=== PATIENT | female | born 1950 | race African-American/Black ===

== ENCOUNTER 2023-11-06 20:26 | Inpatient (IN) | payer MEDICARE, MEDICAID ==
[~2023-11-06] VITALS: Ht 154.9 cm; Wt 79.9 kg
[2023-11-06] MEDS: SODIUM CHLORIDE 0.9% 1,000 ML IV ONE (05:00)
[~2023-11-06 20:26] MED LIST: FLUT12AE7; HYDR-519
[2023-11-06] MEDS ORDERED: ONDANSETRON HCL 4MG/2ML INJ IV STA (22:58)
[2023-11-06] MEDS ORDERED: FENTANYL CITRATE/PF 50MCG/ML 2ML VIAL IV ONE (23:00)
[2023-11-06 23:57] LABS: POTASSIUM 3.8 mEq/L (3.5-5.1)
[2023-11-07 00:03] LABS: BASOPHILS % 0.8 % (0.0-2.0); CREATININE 1.1 mg/dL (0.6-1.0); EOSINOPHILS % 1.7 % (0.0-5.0); HEMATOCRIT. 41.6 % (36.0-48.0); HEMOGLOBIN. 13.4 g/dL (12.0-16.0); LYMPHOCYTES % 19.3 % (20.0-50.0); MEAN CORPUSCULAR HEMOGLOBIN 27.3 pg (28.0-32.0); MEAN CORPUSCULAR HGB CONC 32.2 g/dL (31.0-37.0); MEAN CORPUSCULAR VOLUME 84.9 fL (81.0-99.0); MEAN PLATELET VOLUME 9.7 fl (7.4-10.4); MONOCYTES % 6.6 % (2.0-8.0); NEUTROPHILS % 71.6 % (40.0-76.0); PLATELET 224 x1000/uL (130-400); RED BLOOD CELL COUNT 4.91 mill/uL (4.2-5.4); RED CELL DISTRIBUTION WIDTH 15.2 % (11.6-14.6); WHITE BLOOD COUNT 16.6 x1000/uL (4.5-11.0)
[2023-11-07] MEDS: ONDANSETRON HCL 4MG/2ML INJ IV NR (00:07)
[2023-11-07] MEDS: FENTANYL CITRATE/PF 50MCG/ML 2ML VIAL IV NR (00:10)
[2023-11-07] MEDS: IOHEXOL-300 100 ML BOTTLE ONE (06:35)
[2023-11-07 12:00] VITALS: BP 143/76; PULSE 60; RESP 18; TEMP 97.4
[2023-11-07] MEDS ORDERED: IPRATROPIUM/ALBUTEROL 0.5-3(2.5)MG/3ML NEB HHN PRN (12:45)
[2023-11-07] MEDS ORDERED: ONDANSETRON HCL 4MG/2ML INJ IV PRN (12:45)
[2023-11-07 13:00] VITALS: BP 143/73; PULSE 60; RESP 18; TEMP 98.1
[2023-11-07] MEDS ORDERED: NALOXONE HCL 0.4MG/ML VIAL IV PRN (13:00)
[2023-11-07] MEDS: ACETAMINOPHEN 325MG TABLET PO PRN (13:17)
[2023-11-07] MEDS: SODIUM CHLORIDE 0.45% 1,000 ML IV SCH (15:58)
[2023-11-07 16:00] VITALS: BP 125/81; PULSE 67; RESP 18; TEMP 97.7
[2023-11-07 16:53] LABS: CREATINE KINASE MB FRACTION 1.4 ng/mL (0.5-3.6); TROPONIN I HIGH SENSITIVITY 6 ng/L (3.0-34)
[2023-11-07 16:54] LABS: CREATINE KINASE 136 IU/L (34-145)
[2023-11-07 20:00] VITALS: BP 129/87; PULSE 68; RESP 18; TEMP 98.6
[2023-11-07] MEDS: HYDROCODONE/ACETAMINOPHEN 5/325MG TABLET PO PRN (20:18)
[2023-11-07 22:01] LABS: CREATINE KINASE MB FRACTION 1.1 ng/mL (0.5-3.6)
[2023-11-08] VITALS: BP 158/90; PULSE 60; RESP 18; TEMP 98.5
[2023-11-08 04:00] VITALS: BP 132/77; PULSE 77; RESP 18; TEMP 98.4
[2023-11-08 08:00] VITALS: BP 150/71; PULSE 67; RESP 18; TEMP 98
[2023-11-08 12:00] VITALS: BP 126/73; PULSE 55; RESP 17; TEMP 97.9
[2023-11-08 12:33] LABS: CHLORIDE 106 mEq/L (98-107); POTASSIUM 3.7 mEq/L (3.5-5.1); SODIUM 137 mEq/L (136-145)
[2023-11-08 12:34] LABS: CALCIUM 9.4 mg/dL (8.7-10.4); CARBON DIOXIDE 25 mEq/L (21-32)
[2023-11-08 12:37] LABS: BASOPHILS % 0.4 % (0.0-2.0); EOSINOPHILS % 3.5 % (0.0-5.0); HEMATOCRIT. 40.3 % (36.0-48.0); LYMPHOCYTES % 35.7 % (20.0-50.0); MEAN CORPUSCULAR HEMOGLOBIN 27.8 pg (28.0-32.0); MEAN CORPUSCULAR HGB CONC 32.4 g/dL (31.0-37.0); MEAN CORPUSCULAR VOLUME 85.8 fL (81.0-99.0); MEAN PLATELET VOLUME 9.8 fl (7.4-10.4); NEUTROPHILS % 52.4 % (40.0-76.0); PLATELET 219 x1000/uL (130-400); RED BLOOD CELL COUNT 4.69 mill/uL (4.2-5.4); RED CELL DISTRIBUTION WIDTH 14.9 % (11.6-14.6); WHITE BLOOD COUNT 7.6 x1000/uL (4.5-11.0)
[2023-11-08 12:39] LABS: CREATININE 0.9 mg/dL (0.6-1.0); GLUCOSE 83 mg/dL (70-105); TRIGLYCERIDE 56 mg/dL (0-150); UREA NITROGEN BLOOD 9 mg/dL (9-23)
[2023-11-08 12:40] LABS: LDL CHOLESTEROL 72 mg/dL (5-100)
[2023-11-08 12:41] LABS: CHOLESTEROL 143 mg/dL (<200); HDL CHOLESTEROL 57 mg/dL (>65)
[2023-11-08 16:00] VITALS: BP 118/72; PULSE 63; RESP 17; TEMP 97.3
[2023-11-08 16:15] VITALS: BP 118/72; PULSE 63; TEMP 97.3; O2SAT 97
== END 2023-11-08 17:30 | disposition home or self-care (01) | DRG 914 ==
LOC: ER 20:26 → MICUSO 11-07 06:27 → 5WST 11-07 08:52 → 7EST 11-07 11:11
PROVIDERS: ADMIT Internal Medicine; ATTEND Internal Medicine
DX: S09.8XXA Other specified injuries of head, initial encounter (principal); I10 Essential (primary) hypertension; V49.9XXA Car occupant (driver) (passenger) injured in unspecified traffic accident, initial encounter; Y93.89 Activity, other specified; Y92.89 Other specified places as the place of occurrence of the external cause; Y99.8 Other external cause status
CPT/HCPCS: 36415; 71045; 71111; 71260; 74177; 80048; 80061; 82550; 82553; 84484; 85025; 86850; 86900; 99291; J2405; J3010; J7030; Q9967